=== PATIENT | female | born 1980 | race African-American/Black ===

== ENCOUNTER → 2024-11-20 | Day surgery (SDC) | payer BC ==
[2024-11-19 12:15] VITALS: BMI 36.0
[~2024-11-20] MED LIST: HYDROmorphone 0.5 MG/0.5 ML SYRINGE ONE; Hydrocodone-Acetamin 15 ML UDCUP ONE; Lidocaine 1% w/Epinephrine 1:200K 30 ML VIAL ONE
[2024-11-20 10:06] LABS: Hematocrit 38.0 % (34.9-44.5)
[2024-11-20 10:22] LABS: BHCG - Serum Negative (NEGATIVE); Pregs Control Background? CLEAR/WHITE (CLR/WHITE); Pregs Control Bar Appear? YES (CONTROL BAR)
== END ==
LOC: CSHSDC 08:51
PROVIDERS: ATTEND Specialist
PROC: 0GBG0ZZ Excision of Left Thyroid Gland Lobe, Open Approach (ICD-10-PCS; principal; 2024-11-20)
DX: E04.2 Nontoxic multinodular goiter (principal); Z87.891 Personal history of nicotine dependence
CPT/HCPCS: 36415; 84703; 85014; 88307; A6258; J1171; J2704; J3010